=== PATIENT | male | born 1950 | race Caucasian/White ===

== ENCOUNTER → 2016-08-06 | Emergency (ER) | payer MEDICARE ==
[~2016-08-06] MED LIST: Sodium Chloride 0.9% 1000 ML 1,000 ML IV STA; Sodium Chloride 0.9% 1000 ML 1,000 ML ONE
--- NOTE | 2016-08-06 20:46 | ERPHSYRPT ---
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 STS VOMITED ON FLOOR APPROX 6 FEET IN FRONT OF HIM. DENIES N/D. STS NO PAIN IN ABD AT PRESENT. STS LAST BM TODAY, NORMAL FOR HIM. DENIES OTHER COMPLAINTS. Triage Nursing Assessment: PT ALERT, ORIENTED, ANSWERS ALL QUESTIONS APPROPRIATELY. SKIN P/W/D, RESPS NON-LABORED. PT ABLE TO TRANSFER SELF COT TO BED. ABD SOFT, NON-TENDER UPON PALPATION. ORAL MUCOSA TACKY. Physician History: FOR THE PAST 9.5 HOURS PT HAS HAD GENERALIZED WEAKNESS, DIZZINESS, THIRST AND VOMITING X1; DENIES CHEST PAIN, SHORTNESS OF AIR, FEVER, ABDOMINAL PAIN. Allergies/Adverse Reactions: Tetanus Vaccines and Toxoid [Tetanus] Allergy (Severe, Verified 08/06/16 20:18) Swelling Home Medications: Atorvastatin Calcium [Lipitor] 10 mg PO DAILY 08/06/16 [History] Gabapentin 300 mg PO BID 08/06/16 [History] Glimepiride 1 mg PO DAILY 08/06/16 [History] Lisinopril [Zestril] 2.5 mg PO DAILY 08/06/16 [History] Hx Tetanus, Diphtheria Vaccination/Date Given: No Hx Influenza Vaccination/Date Given: No Hx Pneumococcal Vaccination/Date Given: No - Review of Systems Constitutional: Weakness, Other (THIRST), No Fever Respiratory: No Dyspnea Cardiac: No Chest Pain Abdominal/Gastrointestinal: Vomiting, No Abdominal Pain, No Diarrhea Musculoskeletal: No Back Pain Neurological: Dizziness, No Headache Endocrine: No Excessive Sweating All Other Systems: Reviewed and Negative - Past Medical History Pertinent Past Medical History: Yes Neurological History: No Pertinent History ENT History: No Pertinent History Cardiac History: Coronary Artery Disease, High Cholesterol, Hypertension, Myocardial Infarction ([place]) Respiratory History: Emphysema Endocrine Medical History: Diabetes Type II Musculoskeletal History: No Pertinent History GI Medical History: No Pertinent History History: No Pertinent History Psycho-Social History: No Pertinent History Male Reproductive Disorders: No Pertinent History - Past Surgical History Past Surgical History: Yes Cardiac: Cardiac Catheterization Musculoskeletal: Orthopedic Surgery - Social History Smoking Status: Current every day smoker How long have you smoked: 53 YEARS Exposure to second hand smoke: No Drug Use: none Patient Lives Alone: No - Nursing Vital Signs Nursing Vital Signs: Initial Vital Signs Temperature 98.6 F Temperature Source Oral Pulse Rate 82 Respiratory Rate 18 Blood Pressure [] 145/71 Pain Intensity 0 - Physical Exam General Appearance: alert Eye Exam: PERRL/EOMI Ears, Nose, Throat Exam: TMs normal, dry mucous membranes Neck Exam: normal inspection Respiratory Exam: lungs clear Cardiovascular Exam: normal heart sounds Gastrointestinal/Abdomen Exam: soft, normal bowel sounds, No tenderness Back Exam: normal range of motion Extremity Exam: other (AMPUTATIONS OF 2ND & 3RD TOES OF BOTH FEET.) Neurologic Exam: alert, cooperative, sensation nml, No motor deficits Skin Exam: warm, dry SpO2 Interpretation: normal SpO2: 93 Oxygen Delivery: Room Air - Course Nursing assessment & vital signs reviewed: Yes EKG Interpreted by Me: RATE (81), Sinus Rhythm, NORMAL AXIS, NORMAL INTERVALS - Radiology Exams Chest X-ray Interpretation: Interpreted by me, No Pneumonia - CT Exams Head CT Interpretation: Tele-radiologist Report (NORMAL HEAD/BRAIN CT) Ordered Tests: Active Orders 24 hr Category Date Time Status Silk Screen Frame Assembler STAT Care 08/06/16 20:37 Active EKG-ER Only STAT Care 08/06/16 20:37 Active IV Insertion STAT Care 08/06/16 20:37 Active Pulse Oximetry (ED) STAT Care 08/06/16 20:37 Active CHEST 1 VIEW (PORTABLE) Stat Exams 08/06/16 20:37 Taken HEAD WITHOUT CONTRAST [CT] Stat Exams 08/06/16 22:00 Taken AMYLASE Stat Lab 08/06/16 20:55 Completed BNP [NT PRO BNP] Stat Lab 08/06/16 20:55 Completed CBC W DIFF Stat Lab 08/06/16 20:55 Completed CMP Stat Lab 08/06/16 20:55 Completed D-DIMER QUANTITATION Stat Lab 08/06/16 20:55 Completed LIPASE Stat Lab 08/06/16 20:55 Completed MAGNESIUM Stat Lab 08/06/16 20:55 Completed TROPONIN Q3H Lab 08/06/16 20:55 Completed TROPONIN Q3H Lab 08/06/16 23:45 Ordered TROPONIN Q3H Lab 08/07/16 02:45 Ordered TROPONIN Q3H Lab 08/07/16 05:45 Ordered TROPONIN Q3H Lab 08/07/16 08:45 Ordered UA W/ MICROSCOPIC Stat Lab 08/06/16 21:19 Completed Urine Triage Profile Stat Lab 08/06/16 21:19 Completed Medication Summary Discontinued Medications Generic Name Dose Route Start Last Admin Trade Name Miguel PRN Reason Stop Dose Admin Sodium Chloride 1,000 mls @ 999 mls/hr 08/06/16 20:37 08/06/16 20:46 Sodium Chloride 0.9% 1000 Ml IV 08/06/16 21:37 999 mls/hr .Q1H1M STA Administration Sodium Chloride Confirm 08/06/16 20:44 Sodium Chloride 0.9% 1000 Ml Administered 08/06/16 20:45 Dose 1,000 mls @ ud .ROUTE .STK-MED ONE Lab/Rad Data: Laboratory Result Diagrams 08/06/16 20:55 08/06/16 20:55 Laboratory Results 08/06/16 08/06/16 08/06/16 Range/Units 21:19 21:19 20:55 WBC (4.0-10.5) K/mm3 RBC (4.1-5.6) M/mm3 Hgb (12.5-18.0) gm/dl Hct (42-50) % MCV (78-100) fl MCH (26-32) pg MCHC (32-36) g/dl RDW (11.5-14.0) % Plt Count (150-450) K/mm3 MPV (6-9.5) fl Gran % (36.0-66.0) % Lymphocytes % (24.0-44.0) % Monocytes % (0.0-12.0) % Eosinophils % (0.00-5.0) % Basophils % (0.0-0.4) % Basophils # (0-0.4) D-Dimer (0.00-0.49) mg/L Sodium (136-145) mEq/L Potassium (3.5-5.1) mEq/L Chloride (98-107) mEq/L Carbon Dioxide (21-32) mEq/L Anion Gap (5-15) MEQ/L BUN (9-20) mg/dL Creatinine (0.55-1.30) mg/dl Estimated GFR ML/MIN Glucose (70-110) MG/DL Calcium (8.5-10.1) mg/dL Magnesium (1.8-2.4) mg/dL Total Bilirubin (0.2-1.0) mg/dL AST (15-37) U/L ALT (12-78) U/L Alkaline Phosphatase (46-116) U/L Troponin I (0.000-0.056) ng/ml NT-Pro-B Natriuret Pep 453 H (0-125) pg/ml Serum Total Protein (6.4-8.2) gm/dL Albumin (3.4-5.0) g/dL Amylase (25-115) U/L Lipase (73-393) U/L Ur Collection Type CLEAN CATCH Urine Color YELLOW (YELLOW) Urine Appearance CLEAR (CLEAR) Urine pH 7.0 (5-6) Ur Specific [place] 1.020 (1.005-1.025) Urine Protein 30 (Negative) Urine Glucose (UA) NEGATIVE (NEGATIVE) mg/dL Urine Ketones TRACE (NEGATIVE) Urine Nitrite NEGATIVE (NEGATIVE) Urine Bilirubin NEGATIVE (NEGATIVE) Urine Urobilinogen 0.2 (0-1) mg/dL Urine WBC (Auto) NEGATIVE (NEGATIVE) Urine RBC (Auto) TRACE-INTACT (0-5) Dayne/ul Urine Microscopic RBC 0-2 (0-2) /HPF Ur Epithelial Cells RARE (FEW) /HPF Urine Bacteria RARE (NEGATIVE) /HPF Urine Opiates Level NEG. (NEGATIVE) Ur Methadone NEG. (NEGATIVE) Urine Barbiturates NEG. (NEGATIVE) Ur Phencyclidine (PCP) NEG. (NEGATIVE) Urine Amphetamine NEG. (NEGATIVE) U Benzodiazepine Level NEG. (NEGATIVE) Urine Cocaine NEG. (NEGATIVE) Urine Marijuana (THC) NEG. (NEGATIVE) Specimen Received 08/06/16211908/06/16 08/06/16 08/06/16 Range/Units 20:55 20:55 20:55 WBC (4.0-10.5) K/mm3 RBC (4.1-5.6) M/mm3 Hgb (12.5-18.0) gm/dl Hct (42-50) % MCV (78-100) fl MCH (26-32) pg MCHC (32-36) g/dl RDW (11.5-14.0) % Plt Count (150-450) K/mm3 MPV (6-9.5) fl Gran % (36.0-66.0) % Lymphocytes % (24.0-44.0) % Monocytes % (0.0-12.0) % Eosinophils % (0.00-5.0) % Basophils % (0.0-0.4) % Basophils # (0-0.4) D-Dimer 0.776 H* (0.00-0.49) mg/L Sodium 136 (136-145) mEq/L Potassium 4.3 (3.5-5.1) mEq/L Chloride 102 (98-107) mEq/L Carbon Dioxide 22.8 (21-32) mEq/L Anion Gap 15.0 (5-15) MEQ/L BUN 19 (9-20) mg/dL Creatinine 1.78 H (0.55-1.30) mg/dl Estimated GFR 41 ML/MIN Glucose 105 (70-110) MG/DL Calcium 8.6 (8.5-10.1) mg/dL Magnesium 1.9 (1.8-2.4) mg/dL Total Bilirubin 0.2 (0.2-1.0) mg/dL AST 10 L (15-37) U/L ALT 10 L (12-78) U/L Alkaline Phosphatase 84 (46-116) U/L Troponin I < 0.017 (0.000-0.056) ng/ml NT-Pro-B Natriuret Pep (0-125) pg/ml Serum Total Protein 8.1 (6.4-8.2) gm/dL Albumin 3.2 L (3.4-5.0) g/dL Amylase 51 (25-115) U/L Lipase 166 (73-393) U/L Ur Collection Type Urine Color (YELLOW) Urine Appearance (CLEAR) Urine pH (5-6) Ur Specific [place] (1.005-1.025) Urine Protein (Negative) Urine Glucose (UA) (NEGATIVE) mg/dL Urine Ketones (NEGATIVE) Urine Nitrite (NEGATIVE) Urine Bilirubin (NEGATIVE) Urine Urobilinogen (0-1) mg/dL Urine WBC (Auto) (NEGATIVE) Urine RBC (Auto) (0-5) Dayne/ul Urine Microscopic RBC (0-2) /HPF Ur Epithelial Cells (FEW) /HPF Urine Bacteria (NEGATIVE) /HPF Urine Opiates Level (NEGATIVE) Ur Methadone (NEGATIVE) Urine Barbiturates (NEGATIVE) Ur Phencyclidine (PCP) (NEGATIVE) Urine Amphetamine (NEGATIVE) U Benzodiazepine Level (NEGATIVE) Urine Cocaine (NEGATIVE) Urine Marijuana (THC) (NEGATIVE) Specimen Received 08/06/16 Range/Units 20:55 WBC 10.9 H (4.0-10.5) K/mm3 RBC 4.97 (4.1-5.6) M/mm3 Hgb 14.7 (12.5-18.0) gm/dl Hct 45.4 (42-50) % MCV 91.3 (78-100) fl MCH 29.6 (26-32) pg MCHC 32.4 (32-36) g/dl RDW 15.3 H (11.5-14.0) % Plt Count 359 (150-450) K/mm3 MPV 8.4 (6-9.5) fl Gran % 75.1 H (36.0-66.0) % Lymphocytes % 15.8 L (24.0-44.0) % Monocytes % 7.5 (0.0-12.0) % Eosinophils % 1.4 (0.00-5.0) % Basophils % 0.2 (0.0-0.4) % Basophils # 0.02 (0-0.4) D-Dimer (0.00-0.49) mg/L Sodium (136-145) mEq/L Potassium (3.5-5.1) mEq/L Chloride (98-107) mEq/L Carbon Dioxide (21-32) mEq/L Anion Gap (5-15) MEQ/L BUN (9-20) mg/dL Creatinine (0.55-1.30) mg/dl Estimated GFR ML/MIN Glucose (70-110) MG/DL Calcium (8.5-10.1) mg/dL Magnesium (1.8-2.4) mg/dL Total Bilirubin (0.2-1.0) mg/dL AST (15-37) U/L ALT (12-78) U/L Alkaline Phosphatase (46-116) U/L Troponin I (0.000-0.056) ng/ml NT-Pro-B Natriuret Pep (0-125) pg/ml Serum Total Protein (6.4-8.2) gm/dL Albumin (3.4-5.0) g/dL Amylase (25-115) U/L Lipase (73-393) U/L Ur Collection Type Urine Color (YELLOW) Urine Appearance (CLEAR) Urine pH (5-6) Ur Specific [place] (1.005-1.025) Urine Protein (Negative) Urine Glucose (UA) (NEGATIVE) mg/dL Urine Ketones (NEGATIVE) Urine Nitrite (NEGATIVE) Urine Bilirubin (NEGATIVE) Urine Urobilinogen (0-1) mg/dL Urine WBC (Auto) (NEGATIVE) Urine RBC (Auto) (0-5) Dayne/ul Urine Microscopic RBC (0-2) /HPF Ur Epithelial Cells (FEW) /HPF Urine Bacteria (NEGATIVE) /HPF Urine Opiates Level (NEGATIVE) Ur Methadone (NEGATIVE) Urine Barbiturates (NEGATIVE) Ur Phencyclidine (PCP) (NEGATIVE) Urine Amphetamine (NEGATIVE) U Benzodiazepine Level (NEGATIVE) Urine Cocaine (NEGATIVE) Urine Marijuana (THC) (NEGATIVE) Specimen Received - Progress Discussed with DrMaggie: Jorge Lara (OBS - [id number]) - Departure Time of Disposition: 23:27 Departure Disposition: Observation Clinical Impression: WEAKNESS, VOMITING, ELEVATED D-DIMER, CKD, CAD, HTN, EMPHYSEMA, DM Condition: Fair Critical Care Time: No Referrals: CASEY SOLORZANO MD [Primary Care Provider] -
[2016-08-06 21:01] LABS: BASOPHIL % 0.2 % (0.0-0.4); Eosinophil % 1.4 % (0.00-5.0); Granulocytes % 75.1 % (36.0-66.0); Lymphocytes % 15.8 % (24.0-44.0); Mean Cell Volume 91.3 fl (78-100); Mean Corpuscular Hemoglobin 29.6 pg (26-32); Mean Platelet Volume 8.4 fl (6-9.5); Monocytes % 7.5 % (0.0-12.0); Platelet Count 359 K/mm3 (150-450); Red Blood Count 4.97 M/mm3 (4.1-5.6); Red Cell Distribution Width 15.3 % (11.5-14.0); White Blood Count 10.9 K/mm3 (4.0-10.5)
[2016-08-06 21:17] VITALS: O2SAT 93
[2016-08-06 21:24] LABS: ALBUMIN 3.2 g/dL (3.4-5.0); BILIRUBIN,TOTAL 0.2 mg/dL (0.2-1.0); Carbon Dioxide 22.8 mEq/L (21-32); MAGNESIUM 1.9 mg/dL (1.8-2.4); Potassium 4.3 mEq/L (3.5-5.1); Total Protein 8.1 gm/dL (6.4-8.2)
[2016-08-06 21:54] LABS: COMPLETE URINE MICROSCOPIC? YES; Collection Type CLEAN CATCH
[2016-08-06 21:55] LABS: Bacteria RARE /HPF (NEGATIVE); Epithelial Cells RARE /HPF (FEW)
[2016-08-07 00:10] VITALS: BP 145/74; PULSE 90
--- NOTE | 2016-08-07 08:32 | XRAY ---
Indication: Vomiting, weakness, and dizziness. Multiple contiguous axial images obtained through the head without contrast. Comparison: None Age-appropriate global atrophy and minimal periventricular degenerative micro-ischemia. No acute intracranial hemorrhage, abnormal extra-axial fluid collection, or mass effect. Fourth ventricle is midline without hydrocephalus. Bony calvarium intact. Visualized paranasal sinuses and mastoid air cells are pneumatized and clear. Impression: Nonacute senile brain. Comment: Preliminary interpretation was made by [facility]. No discrepancy. CT DI 64.95
--- NOTE | 2016-08-07 08:36 | XRAY ---
Indication: Weakness and short of breath. Comparison: February 05, 2010 Portable chest demonstrates new subtle right base infiltrate/atelectasis and small effusion. Left lung clear. Heart is not enlarged for AP portable technique. Bony thorax intact again with osteopenia and degenerative changes. Impression: New right base infiltrate/atelectasis/effusion. Comment: Right lung base findings not reported on preliminary interpretation by the ER clinician. I gave telephone report to Dr. Olivares in the ER at 0831 hrs. on August 07, 2016.
== END | disposition left against medical advice (07) ==
LOC: ED 20:15
DX: R53.1 Weakness (principal); R11.2 Nausea with vomiting, unspecified; R79.1 Abnormal coagulation profile; N18.9 Chronic kidney disease, unspecified; I25.10 Atherosclerotic heart disease of native coronary artery without angina pectoris; I10 Essential (primary) hypertension; J43.9 Emphysema, unspecified; E11.9 Type 2 diabetes mellitus without complications; R63.1 Polydipsia; R42 Dizziness and giddiness; E78.00 Pure hypercholesterolemia, unspecified
CPT/HCPCS: 36415; 70450; 71010; 80053; 80307; 81000; 82150; 83690; 83735; 83880; 84484; 85025; 85379; 93005; 93041; 99284

== ENCOUNTER 2017-12-29 20:27 | Emergency (ER) | payer MEDICARE, OTHER ==
[2017-12-29 20:52] VITALS: BP 166/83; O2SAT 95
--- NOTE | 2017-12-29 20:58 | ERPHSYRPT ---
- History of Present Illness Time Seen by Provider: 12/29/17 20:43 Source: patient, other (spouse) Exam Limitations: no limitations Patient Subjective Stated Complaint: pt states his ankle has been bothering him for aprox 4 months. states pain has been getting worse and he almost feel today because his ankle wouldnt hold him. Triage Nursing Assessment: pt alert and oriented, anwers questions approp. pt ambulate from wheelchair to stretcher with assist of 1 and cane. unsteady gait noted. respirations nonlabored. skin warm and dry. m2nd and 3rd toes to lt foot previously amputated, healed well. bilat pedal pulse weak. Physician History: Pt is c/o left ankle and foot pain for 4 months. He denies any injury, no swelling, or other complaints, no chest pain, cough, SOB, fever, or vomiting. He is diabetic, smokes, has Neuropathy, almost fell " the other day ". He has not been checking his glucose " for a while". Method of Injury: other (denies) Quality: constant Severity of Pain-Max: moderate Severity of Pain-Current: moderate Lower Extremities Pain: foot: left, ankle: left Modifying Factors: Improves With: nothing Associated Symptoms: none Allergies/Adverse Reactions: Tetanus Vaccines and Toxoid [Tetanus] Allergy (Severe, Verified 08/06/16 20:18) Swelling Home Medications: Atorvastatin Calcium [Lipitor] 10 mg PO DAILY 08/06/16 [History] Gabapentin 300 mg PO BID 08/06/16 [History] Glimepiride 1 mg PO DAILY 08/06/16 [History] Lisinopril [Zestril] 2.5 mg PO DAILY 08/06/16 [History] Hx Tetanus, Diphtheria Vaccination/Date Given: No Hx Influenza Vaccination/Date Given: No Hx Pneumococcal Vaccination/Date Given: No Immunizations Up to Date: No - Review of Systems Constitutional: No Symptoms Musculoskeletal: Other (left foot and ankle pain) All Other Systems: Reviewed and Negative - Past Medical History Pertinent Past Medical History: Yes Neurological History: Peripheral Neuropathy ENT History: No Pertinent History Cardiac History: Coronary Artery Disease, High Cholesterol, Hypertension, Myocardial Infarction ([place]) Respiratory History: Emphysema Endocrine Medical History: Diabetes Type II Musculoskeletal History: No Pertinent History GI Medical History: No Pertinent History History: No Pertinent History Psycho-Social History: No Pertinent History Male Reproductive Disorders: No Pertinent History Other Medical History: mult mi with 10 stents - Past Surgical History Past Surgical History: Yes Cardiac: Cardiac Catheterization Musculoskeletal: Amputation, Orthopedic Surgery Other Surgical History: toe amputations - Social History Smoking Status: Current every day smoker How long have you smoked: 53 YEARS Exposure to second hand smoke: No Drug Use: none Patient Lives Alone: No - Nursing Vital Signs Nursing Vital Signs: Initial Vital Signs Temperature 97.9 F 12/29/17 20:40 Respiratory Rate 18 12/29/17 20:40 Blood Pressure 166/83 12/29/17 20:40 O2 Sat by Pulse Oximetry 95 12/29/17 20:40 Pain Scale Pain Intensity 6 - Physical Exam General Appearance: no apparent distress Eyes, Ears, Nose, Throat Exam: normal ENT inspection, moist mucous membranes Neck Exam: normal inspection, non-tender, supple, No JVD Cardiovascular/Respiratory Exam: chest non-tender, normal breath sounds, regular rate/rhythm, heart sounds normal, No no JVD Gastrointestinal/Abdominal Exam: non-tender, soft, no organomegaly Back Exam: normal inspection, No CVA tenderness Legs Exam: bilateral leg: other (no calf tenderness or swelling) Ankle Exam: left ankle: soft tissue tenderness (no swelling or discoloration) Foot Exam: bilateral foot: other (both 2-3 rd toes are amputated) Neuro/Tendon Exam: normal motor functions Mental Status Exam: alert, oriented x 3 Skin Exam: normal color, warm, dry, No rash SpO2 Interpretation: normal SpO2: 95 Oxygen Delivery: Room Air - Course Nursing assessment & vital signs reviewed: Yes - Radiology Exams Ankle X-ray Interpretation: Interpreted by me, Negative Foot X-ray Interpretation: Interpreted by me, Negative Ordered Tests: Active Orders 24 hr Category Date Time Status ANKLE (3 VIEWS) Stat Exams 12/29/17 20:52 Taken FOOT (MINIMUM 3 VIEWS) Stat Exams 12/29/17 20:52 Taken BMP Stat Lab 12/29/17 21:04 Completed CBC Stat Lab 12/29/17 21:04 Completed Uric Acid Stat Lab 12/29/17 21:04 Completed Lab/Rad Data: Laboratory Result Diagrams 12/29/17 21:04 12/29/17 21:04 Laboratory Results 12/29/17 12/29/17 Range/Units 21:04 21:04 WBC 7.9 (4.0-10.5) K/mm3 RBC 4.64 (4.1-5.6) M/mm3 Hgb 14.0 (12.5-18.0) gm/dl Hct 42.0 (42-50) % MCV 90.5 (78-100) fl MCH 30.2 (26-32) pg MCHC 33.3 (32-36) g/dl RDW 15.7 H (11.5-14.0) % Plt Count 317 (150-450) K/mm3 MPV 8.5 (6-9.5) fl Sodium 139 (137-145) mmol/L Potassium 4.5 (3.5-5.1) mmol/L Chloride 109 H (98-107) mmol/L Carbon Dioxide 23 (22-30) mmol/L Anion Gap 11.8 (5-15) MEQ/L BUN 23 H (9-20) mg/dL Creatinine 1.72 H (0.66-1.25) mg/dL Estimated GFR 42.1 ML/MIN Glucose 119 H (74-106) mg/dL Uric Acid 6.3 (3.5-7.2) mg/dL Calcium 8.8 (8.4-10.2) mg/dL - Progress Progress: unchanged Progress Note: 12/29/17 21:58 I discussed our findings with patient and his , suggested to follow up with his PCP for his chronic ankle and foot pain, which possibly due to arthritis vs. Neuropathy, they agreed, he did not want anything for pain at this time, he is being discharged in stable condition. Counseled pt/family regarding: lab results, diagnosis, need for follow-up, rad results - Departure Time of Disposition: 22:00 Departure Disposition: Home Clinical Impression: Foot pain, left Condition: Stable Critical Care Time: No Referrals: CASEY SOLORZANO MD [Primary Care Provider] - Instructions: Diabetic Neuropathy (DC), Foot Care for Diabetics Additional Instructions: Return if severe pain, swelling, follow up with your physician in 1 week.
[2017-12-29 21:06] LABS: Mean Cell Volume 90.5 fl (78-100); Mean Corpuscular Hemoglobin 30.2 pg (26-32); Mean Corpuscular Hgb Concent. 33.3 g/dl (32-36); Mean Platelet Volume 8.5 fl (6-9.5); Platelet Count 317 K/mm3 (150-450); Red Blood Count 4.64 M/mm3 (4.1-5.6); Red Cell Distribution Width 15.7 % (11.5-14.0); White Blood Count 7.9 K/mm3 (4.0-10.5)
[2017-12-29 21:27] LABS: ANION GAP 11.8 MEQ/L (5-15); Calcium 8.8 mg/dL (8.4-10.2); Creatinine 1 1.72 mg/dL (0.66-1.25); Potassium 4.5 mmol/L (3.5-5.1); Uric Acid 6.3 mg/dL (3.5-7.2)
--- NOTE | 2017-12-30 11:34 | XRAY ---
Exam: 3 view left ankle series from 12/29/2017. Comparison: None. Indication: 67-year-old male with left ankle pain, no known injury. Findings: AP, oblique, and lateral radiographs of the left ankle were obtained. I see no acute fracture or dislocation. There is slight soft tissue prominence about the left ankle. Correlate clinically. The left ankle mortise is well-preserved and appears uniform on these nonstressed images. I believe there is a mild patchy, periarticular bone demineralization. A minimal plantar left calcaneal spur is seen. Impression: 1. No acute fracture or dislocation of the left ankle is seen. 2. Other incidental nonspecific findings, as described above.
--- NOTE | 2017-12-30 12:48 | XRAY ---
Exam: 3 view left foot series from 12/29/2017. Comparison: None. Indication: Left ankle pain, no known injury. Findings: AP, oblique, and lateral radiographs of the left foot were obtained. I note evidence of prior amputation through the base of the proximal phalanx of the left second toe and the distal portion of the proximal phalanx of the left third toe. Correlate with trauma/surgical history. I see no acute fracture or dislocation. There is a moderate hallux valgus on the AP image. Some patchy bone demineralization is seen about the left ankle and left hindfoot. No periosteal reaction or focal bone destruction is seen to suggest osteomyelitis. The plantar arch appears unremarkable. There is some hyperextension of the MTP joints involving the second through fifth MTP joints on the lateral image. A tiny plantar left calcaneal spur is seen. Impression: 1. No acute fracture or dislocation of the left foot is seen. 2. Nor do I see findings to suggest osteomyelitis within the left foot. 3. Evidence of prior partial amputations of the left second and third toes, as described above. Correlate regarding trauma history/surgical history. 4. Moderate hallux valgus. There is also minimal spurring at the lateral margin of the base of the left great toe. 5. Mild bone demineralization is seen about the left ankle and left hindfoot. 6. Tiny plantar left calcaneal spur.
== END 2017-12-29 22:14 | disposition home or self-care (01) ==
LOC: ED 20:27
DX: M25.572 Pain in left ankle and joints of left foot (principal); Z79.899 Other long term (current) drug therapy
CPT/HCPCS: 36415; 73610; 73630; 80048; 84550; 85027; 99283

== ENCOUNTER 2019-04-12 20:39 | Emergency (ER) | payer MEDICARE, OTHER ==
[2019-04-12 21:08] VITALS: PULSE 93; O2SAT 93
[2019-04-12] MEDS ORDERED: XYLOCAINE 1% HCL 20 ML MDV IJ ONE (21:58)
[2019-04-12] MEDS ORDERED: BACTRIM DS TABLET PO ONE (21:58)
[2019-04-12] MEDS ORDERED: Rocephin 1000 MG INJ ONE (21:58)
[2019-04-12] MEDS: Rocephin 1000 MG INJ IM ONE (22:05)
[2019-04-12] MEDS: BACTRIM DS TABLET PO ONE (22:05)
--- NOTE | 2019-04-12 22:39 | ERPHSYRPT ---
- History of Present Illness Time Seen by Provider: 04/12/19 21:15 Source: patient, family Exam Limitations: no limitations Patient Subjective Stated Complaint: pt states, "The screen door hit my foot 2 months ago and scraped it up and its not getting any better but the pain has gotten alot worse the last couple of weeks". Triage Nursing Assessment: pt was brought back via wheelchair to rm 6, pt alert and oriented x3, pleasant and cooperative. Pt is Legally blind. Pt has wounds to rt ankle, medial and lateral. Medial aspect is open, non-draining, lateral aspect is dry and scabbed over. Cleansed both wounds with ns/hibiclens mixture. Pt states, "I've had these for 2 months when a screen door hit me and scratched me up but the pain is getting worse". Lungs clear, heart tones reg, abd soft with active bs x4 quad, nontender. Physician History: 68 y/o white male presents with abrasions to bilat feet. occurred 2 months ago. right medial wound worse with redness and tenderness. pt is not diabetic. pt has not been on antibiotics Timing/Duration: gradual onset (over 2 months), worse Quality: painful Severity: mild Location: feet (right ) Possible Causes: other (fell and scraped) Allergies/Adverse Reactions: Tetanus Vaccines and Toxoid [Tetanus] Allergy (Severe, Verified 08/06/16 20:18) Swelling Home Medications: Lisinopril [Zestril] 2.5 mg PO DAILY 08/06/16 [History] Metoprolol Tartrate 25 mg [Lopressor 25MG Tab] 25 mg PO DAILY 04/12/19 [ History] Hx Tetanus, Diphtheria Vaccination/Date Given: No (allergic to tetanus) Hx Influenza Vaccination/Date Given: No Hx Pneumococcal Vaccination/Date Given: No Immunizations Up to Date: No - Review of Systems Constitutional: No Symptoms Eyes: No Symptoms Ears, Nose, & Throat: No Symptoms Respiratory: No Symptoms Cardiac: No Symptoms Abdominal/Gastrointestinal: No Symptoms Genitourinary Symptoms: No Symptoms Musculoskeletal: No Symptoms Skin: Other (abrasion right medial ankle) Neurological: No Symptoms Psychological: No Symptoms Endocrine: No Symptoms Hematologic/Lymphatic: No Symptoms Immunological/Allergic: No Symptoms All Other Systems: Reviewed and Negative - Past Medical History Pertinent Past Medical History: Yes Neurological History: Peripheral Neuropathy ENT History: No Pertinent History Cardiac History: Coronary Artery Disease, High Cholesterol, Hypertension, Myocardial Infarction (HI) Respiratory History: CHF, Emphysema, Pneumonia Endocrine Medical History: No Pertinent History Musculoskeletal History: No Pertinent History GI Medical History: No Pertinent History History: No Pertinent History Psycho-Social History: Anxiety, Depression Male Reproductive Disorders: No Pertinent History Other Medical History: mult mi with 10 stents - Past Surgical History Past Surgical History: Yes Neuro Surgical History: No Pertinent History Cardiac: Cardiac Catheterization Respiratory: No Pertinent History Gastrointestinal: No Pertinent History Genitourinary: No Pertinent History Musculoskeletal: Amputation, Orthopedic Surgery Male Surgical History: No Pertinent History Other Surgical History: toe amputations, blood vessels removed from both eyes - Social History Smoking Status: Current every day smoker How long have you smoked: 56 yrs Exposure to second hand smoke: Yes Drug Use: none Patient Lives Alone: No - Nursing Vital Signs Nursing Vital Signs: Initial Vital Signs Temperature 98.9 F 04/12/19 21:07 Pulse Rate 93 H 04/12/19 21:07 Respiratory Rate 21 04/12/19 21:07 Blood Pressure 143/73 04/12/19 21:07 O2 Sat by Pulse Oximetry 93 L 04/12/19 21:07 Pain Scale Pain Intensity 10 - Physical Exam General Appearance: no apparent distress, alert, anxiety Eye Exam: PERRL/EOMI, eyes nml inspection Ears, Nose, Throat Exam: normal ENT inspection, moist mucous membranes Neck Exam: normal inspection, non-tender, supple, full range of motion Respiratory Exam: normal breath sounds, lungs clear, airway intact, No chest tenderness, No respiratory distress Gastrointestinal/Abdomen Exam: soft Rectal Exam: not done Back Exam: normal inspection, normal range of motion, No CVA tenderness, No vertebral tenderness Extremity Exam: normal inspection, normal range of motion, pelvis stable Neurologic Exam: alert, oriented x 3, cooperative, network programmer II-XII nml as tested Skin Exam: abrasion (right medial ankle with periwound cellulitis. no drainage no odor. superficial eschar present) SpO2 Interpretation: borderline oxygenation SpO2: 93 O2 Delivery: Room Air - Course Nursing assessment & vital signs reviewed: Yes Ordered Tests: Medication Summary Discontinued Medications Generic Name Dose Route Start Last Admin Trade Name Freq PRN Reason Stop Dose Admin Ceftriaxone Sodium 1,000 mg 04/12/19 21:49 04/12/19 22:05 Rocephin 1000 Mg Inj IM 04/12/19 21:50 1,000 mg STAT ONE Administration Ceftriaxone Sodium Confirm 04/12/19 21:58 Rocephin 1000 Mg Inj Administered 04/12/19 21:59 Dose 1,000 mg .ROUTE .STK-MED ONE Trimethoprim/Sulfamethoxazole 1 tab 04/12/19 21:52 04/12/19 22:05 Bactrim Ds Tablet PO 04/12/19 21:53 1 tab STAT ONE Administration Trimethoprim/Sulfamethoxazole Confirm 04/12/19 21:58 Bactrim Ds Tablet Administered 04/12/19 21:59 Dose 1 tab PO .STK-MED ONE - Progress Progress: unchanged Counseled pt/family regarding: diagnosis, need for follow-up - Departure Departure Disposition: Home Clinical Impression: Cellulitis, Eschar of foot Condition: Stable Critical Care Time: No Referrals: SHREYA VALLES, [employer]IT[employer] REPAIRER [Primary Care Provider] - Additional Instructions: clean areal daily with soap and water. cover area with antibiotic ointment and bandage daily after washing. follow up in the ED in 24 hours for recheck. Prescriptions: Oxycodone HCl/Acetaminophen [Percocet 5-325 mg Tablet] 1 each PO Q8H PRN PRN #6 tablet MDD 3 PRN Reason: Pain Smz/Tmp Ds Tablet [Bactrim Ds Tablet] 1 udtab PO BID #14 tablet
[2019-04-12 23:08] VITALS: BP 135/73
[2019-04-12] MEDS ORDERED: PERCOCET TABLET 5/325MG ONE (23:10)
[2019-04-12] MEDS ORDERED: BACIGUENT PACKET ONE (23:10)
[2019-04-12] MEDS: PERCOCET TABLET 5/325MG PO STA ×2 (23:14→23:15)
[2019-04-12] MEDS: BACIGUENT PACKET TP ONE (23:15)
== END 2019-04-12 23:34 | disposition home or self-care (01) ==
LOC: ED 20:39
DX: L03.115 Cellulitis of right lower limb (principal); W22.8XXA Striking against or struck by other objects, initial encounter
CPT/HCPCS: 90471; 96372; 99284; J0696; A9270-GY

== ENCOUNTER 2020-06-24 19:35 | Emergency (ER) | payer MEDICARE ==
[2020-06-24 19:52] VITALS: BP 108/77; PULSE 86; O2SAT 92
--- NOTE | 2020-06-24 20:29 | ERPHSYRPT ---
- History of Present Illness Time Seen by Provider: 06/24/20 20:00 Source: patient, family Exam Limitations: no limitations Patient Subjective Stated Complaint: "I scrathced my neck and it won't stop bleeding." Triage Nursing Assessment: Alert et oriented. Reported scraching his neck at home and he could not get the bleeding under control. Reported taking eliquis for heart problems. Denied any injuries to the neck. Denied pain. Right superior neck with 1cm skin flap. Bleeding controlled at time of presentation. No noted swelling or bruising. Physician History: 70 years old male with multiple medical problems including atrial fibrillation currently on Eliquis presented in the ER after he scratched his neck earlier causing a small skin tear on the right upper neck and since then his bleeding is not stopping. He has applied pressure for a little while but does not seem working. Prior to arrival put some starch powder and seems to be better. No pain reported. Up-to-date with tetanus. Timing/Duration: hour(s) (1), sudden Severity: mild Location: neck Possible Causes: other Associated Symptoms: denies symptoms Allergies/Adverse Reactions: Tetanus Vaccines and Toxoid [Tetanus] Allergy (Severe, Verified 06/24/20 19:42) Swelling Home Medications: Metoprolol Tartrate 25 mg [Lopressor 25MG Tab] 25 mg PO DAILY 04/12/19 [History] Aspirin 81 gm Chew [Baby Aspirin 81 mg Chew] 1 tab PO DAILY 06/24/20 [History] Furosemide 20 mg [Lasix 20 mg] 1 tab PO DAILY 06/24/20 [History] Hx Tetanus, Diphtheria Vaccination/Date Given: No (allergic to tetanus) Hx Influenza Vaccination/Date Given: No Hx Pneumococcal Vaccination/Date Given: No Travel Risk - International Travel Have you traveled outside of the country in past 3 weeks: No - Coronavirus Screening Are you exhibiting any of the following symptoms?: No Close contact with a COVID-19 positive Pt in past 14-21 Days: No - Review of Systems Constitutional: No Symptoms Eyes: No Symptoms Ears, Nose, & Throat: No Symptoms Respiratory: No Symptoms Cardiac: No Symptoms Abdominal/Gastrointestinal: No Symptoms Genitourinary Symptoms: No Symptoms Musculoskeletal: No Symptoms Skin: Skin Lesions Neurological: No Symptoms Endocrine: No Symptoms - Past Medical History Pertinent Past Medical History: Yes Neurological History: Peripheral Neuropathy ENT History: No Pertinent History Cardiac History: Coronary Artery Disease, High Cholesterol, Hypertension, Myocardial Infarction ([place]) Respiratory History: CHF, Emphysema, Pneumonia Endocrine Medical History: No Pertinent History Musculoskeletal History: No Pertinent History GI Medical History: No Pertinent History History: No Pertinent History Psycho-Social History: Anxiety, Depression Male Reproductive Disorders: No Pertinent History Other Medical History: mult mi with 10 stents - Past Surgical History Past Surgical History: Yes Neuro Surgical History: No Pertinent History Cardiac: Cardiac Catheterization Respiratory: No Pertinent History Gastrointestinal: No Pertinent History Genitourinary: No Pertinent History Musculoskeletal: Amputation, Orthopedic Surgery Male Surgical History: No Pertinent History Other Surgical History: toe amputations, blood vessels removed from both eyes - Social History Smoking Status: Current every day smoker How long have you smoked: 56 yrs Exposure to second hand smoke: Yes Drug Use: none Patient Lives Alone: No - Nursing Vital Signs Nursing Vital Signs: Initial Vital Signs Pulse Rate 86 06/24/20 19:35 Respiratory Rate 16 06/24/20 19:35 Blood Pressure 108/77 06/24/20 19:35 O2 Sat by Pulse Oximetry 92 L 06/24/20 19:35 Pain Scale Pain Intensity 0 - Physical Exam General Appearance: no apparent distress, alert Eye Exam: eyes nml inspection Ears, Nose, Throat Exam: normal ENT inspection, TMs normal, pharynx normal, other (1.5 cm skin flap right upper neck/underneath right jaw. Minimal oozing.) Neck Exam: non-tender, supple, full range of motion, other Respiratory Exam: normal breath sounds Cardiovascular Exam: normal heart sounds, irregular Back Exam: normal inspection Extremity Exam: normal inspection Neurologic Exam: alert, oriented x 3, cooperative Skin Exam: normal color SpO2 Interpretation: normal SpO2: 92 O2 Delivery: Room Air Procedures - Laceration/Wound Repair Neck Wound Location: Right, neck Wound Length (cm): 1.5 Wound's Depth, Shape: superficial, flap Wound Explored: clean Irrigated: Yes Wound Repaired With: Steri-strips, Dermabond - Progress Progress Note: 06/24/20 20:28 Dermabond followed by Steri-Strips applied and hemostasis is secure. Patient is observed for almost half an hour with no rebleeding. Recommended outpatient follow-up. - Departure Departure Disposition: Home Clinical Impression: Skin tear Condition: Stable Critical Care Time: No Referrals: SHREYA VALLES, RET[employer] COOLER [Primary Care Provider] - (In 2 days for reevaluation) Instructions: Wound Care (DC) Additional Instructions: Keep it clean. Do not wash it for next 24 to 48 hours. Follow-up with primary care physician for reevaluation. Return to ER for rebleeding.
== END 2020-06-24 20:37 | disposition home or self-care (01) ==
LOC: ED 19:35
DX: S11.81XA Laceration without foreign body of other specified part of neck, initial encounter (principal); W50.4XXA Accidental scratch by another person, initial encounter; Y93.9 Activity, unspecified; Y92.9 Unspecified place or not applicable; Y99.9 Unspecified external cause status
CPT/HCPCS: 12001; 99283